=== PATIENT | female | born 1945 | race Hispanic/Latino ===

== ENCOUNTER 2017-03-15 11:57 | Inpatient (IN) | payer BC, MEDICARE ==
[2017-03-15 12:14] VITALS: BMI 25.0
--- NOTE | 2017-03-15 12:40 | ED PDOC ---
Arrival/HPI - General Historian: Patient - History of Present Illness Time/Duration: 1 week Symptom Onset: Gradual Symptom Course: Worsening - General Time Seen by Provider: 03/15/17 12:16 - History of Present Illness Narrative History of Present Illness (Text): 71 F with pmh of Hypertension and smoking for past 58 years presents with cough , dyspnea on exertion, and weakness. Pt states that she has productive cough which has gotten progressively worse. Today she started to feel very weak and becoming short of breath walking from her bedroom to her bathroom so she came to the emergency department. Pt denies any fevers but complaining of chills. She also complaining of palpitations but denies any chest pain. No other complaints. Denies any headache, dizziness, n/v/d, chest pain, abd pain, urinary or bm changes. PMD: Dr Frost ([facility]) Past Medical History - Provider Review Nursing Documentation Reviewed: Yes - Cardiac Hx Hypertension: Yes - Musculoskeletal/Rheumatological Hx Falls: No - Psychiatric Hx Depression: No Hx Emotional Abuse: No Hx Physical Abuse: No Hx Substance Use: No - Surgical History Hx Hysterectomy: Yes (partial) Hx Orthopedic Surgery: Yes (lower back sx 5 yrs ago, laminectomy left lower back ) - Anesthesia Hx Anesthesia: Yes Hx Anesthesia Reactions: No Hx Malignant Hyperthermia: No - Suicidal Assessment Feels Threatened In Home Enviroment: No Family/Social History - Physician Review Nursing Documentation Reviewed: Yes Family/Social History: Diabetes (mother) Smoking Status: Heavy Smoker > 10 Cigarettes Daily Hx Alcohol Use: No Hx Substance Use: No Hx Substance Use Treatment: No Allergies/Home Meds Allergies/Adverse Reactions: Allergies ceftriaxone Allergy (Verified 03/15/17 12:38) RASH Iodinated Contrast Media - Oral and Allergy (Verified 03/15/17 12:38) RASH Home Medications: Home Meds Medication Instructions Recorded Confirmed DULoxetine [Cymbalta] 0 mg PO DAILY 11/25/13 11/25/13 Lisinopril 0 mg PO DAILY 11/25/13 11/25/13 Tramadol Hydrochloride [Tramadol] 0 mg PO TID 11/25/13 11/25/13 Codeine Phos/Phenyleph HCl/P 5 ml PO Q12 PRN 11/28/13 11/28/13 [Phenergan Vc W/Codeine 120 ml] Doxycycline 100 mg PO BID 11/28/13 11/28/13 Review of Systems - Physician Review All systems were reviewed & negative as marked: Yes - Review of Systems Constitutional: Fatigue. absent: Fevers Respiratory: SOB, Cough, Sputum Cardiovascular: Palpitations. absent: Chest Pain, Edema, Calf Pain Physical Exam Temperature: Afebrile Blood Pressure: Normal Pulse: Regular Respiratory Rate: Normal Appearance: Positive for: Well-Appearing, Non-Toxic, Comfortable Pain Distress: None Mental Status: Positive for: Alert and Oriented X 3 - Systems Exam Head: Present: Atraumatic, Normocephalic Pupils: Present: PERRL Extroacular Muscles: Present: EOMI Conjunctiva: Present: Normal Mouth: Present: Moist Mucous Membranes Neck: Present: Normal Range of Motion Respiratory/Chest: Present: Clear to Auscultation, Good Air Exchange, Decreased Breath Sounds (LUQ). No: Respiratory Distress, Accessory Muscle Use, Wheezes, Rales, Rhonchi Cardiovascular: Present: Regular Rate and Rhythm, Normal S1, S2, Tachycardic. No: Murmurs Abdomen: Present: Normal Bowel Sounds. No: Tenderness, Distention, Peritoneal Signs Upper Extremity: Present: Normal Inspection. No: Cyanosis, Edema Lower Extremity: Present: Normal Inspection. No: Edema Neurological: Present: GCS=15, CN II-XII Intact, Speech Normal Skin: Present: Warm, Dry, Normal Color. No: Rashes Psychiatric: Present: Alert, Oriented x 3, Normal Insight, Normal Concentration Vital Signs Temp Pulse Resp BP Pulse Ox 03/15/17 17:02 107 H 18 113/79 96 03/15/17 15:37 111 H 18 111/75 97 03/15/17 14:41 92 H 18 114/79 100 03/15/17 12:39 17 97 03/15/17 12:16 98.1 F 96 H 17 112/80 100 03/15/17 12:13 98 F 100 H 18 112/80 100 Medical Decision Making ED Course and Treatment: 03/15/17 18:58 Patient seen and examined with resident Came up with treatment and disposition plan with resident (Ruben Drew) Impression: 71 F with pmh of Hypertension and smoking for past 58 years presents with cough, dyspnea on exertion, and weakness. Differential Diagnosis included but are not limited to: Pneumina / Bronchitis / COPD exac / CHF Plan: - CBC, CMP, Cardiac Iso, BNP - CXR - Urinalysis - Duoneb - Reassess and disposition Prior Visits: Notes and results from previous visits were reviewed. On11/25/13 patient came in complaining of similar symptoms. Progress Notes: 03/15/17 12:49 Pt hemodynamically stable. Resting in bed comfortably. 03/15/17 13:05 EKG: Ordered, reviewed, and independently interpreted the EKG. Rate : 100 BPM Rhythm : NSR Interpretation : possible L atrial enlargement, Low voltage QRS. Comparison : No previous EKG for comparison. 03/15/17 13:13 CXR- Shows no active disease. 03/15/17 15:28 BUN 57 and Cr of 1.7 1 L IVF bolus started 03/15/17 16:[address] Viveros covering for Dr Frost which will admit the patient under her service. ([facility]) - Lab Interpretations Lab Results: 03/15/17 13:00 03/15/17 13:00 Lab Results 03/15/17 13:00: Sodium 138, Potassium 4.9, Chloride 103, Carbon Dioxide 21, Anion Gap 19, BUN 53 H, Creatinine 1.7 H, Est GFR ( Amer) 36, Est GFR ( Non-Af Amer) 30, Random Glucose 89, Calcium 10.2, Total Bilirubin 0.9, AST 26, ALT 30, Alkaline Phosphatase 92, Lactate Dehydrogenase 521, Total Creatine Kinase 151, Troponin I < 0.01, NT-Pro-B Natriuret Pep 116, Total Protein 8.3, Albumin 4.7, Globulin 3.6, Albumin/Globulin Ratio 1.3 03/15/17 13:00: WBC 7.7, RBC 4.77, Hgb 15.4, Hct 43.7, MCV 91.6, MCH 32.3, MCHC 35.2, RDW 13.0, Plt Count 404, MPV 9.5, Gran % 66.7, Lymph % (Auto) 25.4, Wilson % (Auto) 5.8, Eos % (Auto) 1.6, Baso % (Auto) 0.5, Gran # 5.14, Lymph # 2.0, Wilson # 0.5, Eos # 0.1, Baso # 0.04 - RAD Interpretation Radiology Orders: 03/15/17 12:41 CHEST PORTABLE [RAD] Routine - Medication Orders Current Medication Orders: Discontinued Medications Albuterol/Ipratropium (Duoneb 3 Mg/0.5 Mg (3 Ml) Ud) 3 ml IH Q15M SONY Stop: 03/15/17 13:31 Last Admin: 03/15/17 13:30 Dose: 3 ml Sodium Chloride (Sodium Chloride 0.9%) 1,000 mls @ 999 mls/hr IV .Q1H1M STA Stop: 03/15/17 16:23 Last Admin: 03/15/17 16:52 Dose: 999 mls/hr Disposition/Present on Arrival - Present on Arrival Any Indicators Present on Arrival: No History of DVT/PE: No History of Uncontrolled Diabetes: No Urinary Catheter: No History of Decub. Ulcer: No History Surgical Site Infection Following: None - Disposition Have Diagnosis and Disposition been Completed?: Yes Disposition Time: 16:04 Patient Plan: Admission - Disposition Diagnosis: Dyspnea on exertion, Dehydration Disposition: HOSPITALIZED Condition: FAIR
--- NOTE | 2017-03-15 13:10 | RAD ---
HISTORY: sob COMPARISON: 10/11/2014 FINDINGS: LUNGS: No active pulmonary disease. PLEURA: No significant pleural effusion identified, no pneumothorax apparent. CARDIOVASCULAR: Normal. OSSEOUS STRUCTURES: No significant abnormalities. VISUALIZED UPPER ABDOMEN: Normal. OTHER FINDINGS: None. IMPRESSION: No active disease.
[2017-03-15 13:20] LABS: ADD MANUAL DIFF? NO
[2017-03-15] MEDS: Albuterol-Ipratrop 3 mg / 0.5 (3 ml) UD IH SCH ×2 (13:20→13:30)
[2017-03-15 13:33] LABS: ALB/GLOB RATIO 1.3 (1.1-1.8); ALKALINE PHOSPHATASE 92 U/L (38-133); ALT/SGPT 30 U/L (7-56); AST/SGOT 26 U/L (15-39); BILIRUBIN,TOTAL 0.9 mg/dL (0.2-1.3); BLOOD UREA NITROGEN 53 mg/dL (7-21); CALCIUM 10.2 mg/dL (8.4-10.5); CARBON DIOXIDE 21 mmol/L (21-33); CHLORIDE 103 mmol/L (98-107); GFR AFRICAN-AMERICAN 36; GLUCOSE,RANDOM 89 mg/dL (70-110); POTASSIUM 4.9 mmol/L (3.6-5.0); SODIUM 138 mmol/L (132-148); TOTAL PROTEIN 8.3 g/dL (5.8-8.3)
[2017-03-15 13:34] LABS: BASO # 0.04 K/mm3 (0.0-2.0); BASO % 0.5 % (0.0-3.0); EOS # 0.1 (0.0-0.7); EOS % 1.6 % (1.5-5.0); GRAN # 5.14 (1.4-6.5); GRAN % 66.7 % (50.0-68.0); HEMATOCRIT 43.7 % (36.0-48.0); LYMPH % 25.4 % (22.0-35.0); MEAN CELL VOLUME 91.6 fL (80.0-105.0); MEAN CORPUSCULAR HEMOGLOBIN 32.3 pg (25.0-35.0); MEAN CORPUSCULAR HGB CONC 35.2 g/dl (31.0-37.0); MEAN PLATELET VOLUME 9.5 fl (7.0-11.0); MONO # 0.5 (0.1-0.6); MONO % 5.8 % (1.0-6.0); PLATELET COUNT 404 10^3/uL (120.0-450.0); WHITE BLOOD COUNT 7.7 10^3/ul (4.5-11.0)
[2017-03-15 13:46] LABS: TROPONIN I < 0.01 ng/mL
[2017-03-15] MEDS ORDERED: Sodium Chloride 0.9% 1,000 ML IV STA (15:23)
[2017-03-15] MEDS ORDERED: Promethazine DM 6.25 mg-15 mg/5 ml Syrup PO PRN (19:23)
[2017-03-15] MEDS: Levalbuterol 1.25 MG/3 ML Inhal Soln UD IH SCH (19:52)
[2017-03-15] MEDS ORDERED: Pneumococcal 23-Valent Vaccine IM ONE (20:59)
[2017-03-15] MEDS: MethylPREDNISolone 40 mg Vial IV SCH (22:22)
[2017-03-15] MEDS: Dextrose 5%/0.45% NS 1,000 ML IV SCH (22:22)
--- NOTE | 2017-03-15 23:57 | HP ---
HISTORY OF PRESENT ILLNESS: The patient is a 71-year-old patient of Dr. Frost, I am covering for him over the weekend, who came to Emergency Room because of productive cough and generalized weaknes s and getting shortness of breath on minimal walking. It has been going on for almost a week, but got progressively worse for the last 2 to 3 days. She is complaining of generalized weakness and it has become hard for her to walk within the house, so she came to Emergency Room for further evaluation. She does not have any fever or chills. She does not have a history of hemoptysis. Does feel hot an d cold at times, complained of occasional cough and palpitations associated with minimal exertion. N o history of diarrhea. PAST MEDICAL HISTORY: Significant for: 1. Hypertension. 2. History of severe peripheral vascular disease. 3. Spinal stenosis. PAST SURGICAL HISTORY: Significant for hysterectomy and low back surgery. ALLERGIES: SHE IS ALLERGIC TO CONTRAST MEDIA AND ROCEPHIN. MEDICATIONS AT HOME: She is on tramadol, lisinopril, doxycycline 100 mg twice a day, Cymbalta 30 mg daily and cough medicine. SOCIAL HISTORY: She used to be a very heavy smoker and she still smokes and socially drinks. REVIEW OF SYSTEMS: Significant for generalized weakness, cough and congestion. PHYSICAL EXAMINATION: GENERAL: She is awake, alert and communicative. VITAL SIGNS: She is afebrile, pulse 96, respirations 17 and blood pressure 112/80. LUNGS: Bilateral expiratory rhonchi. HEART: S1, S2 audible. ABDOMEN: Soft, nontender, no rebound and no guarding. NEUROLOGIC: The patient is awake, alert and communicative. EXTREMITIES: Bilateral legs -- no edema. LABORATORY DATA: X-ray chest shows no active disease. Her WBC is 7.7, hemoglobin 15.4, hematocrit 4 3 and platelets . Chemistry: Sodium 138, potassium 4.9, chloride 103, CO2 of 21, BUN 53, creat inine 0.7 and blood sugar of 89. BNP is 116. ASSESSMENT AND PLAN: 1. Chronic obstructive pulmonary disease exacerbation, rule out underlying pneumonia. 2. Mild renal insufficiency. 3. Chronic degenerative disk disease. 4. Hypertension. PLAN: The patient will be admitted on telemetry. Will start her on IV fluids and start IV steroids. I will get CT scan of the chest to rule out underlying pneumonia. Start her empirically on antibio tics and start her on DVT prophylaxis and GI prophylaxis. Michelle Viveros MD cc: [phone] TT: 03/15/2017 23:56:37 sn
[2017-03-16] MEDS: Levalbuterol 1.25 MG/3 ML Inhal Soln UD IH SCH ×4 (01:10→19:47)
[2017-03-16] MEDS: Oxycodone/Acetaminophen 5/325 mg Tab PO PRN ×2 (02:37→21:25)
[2017-03-16 03:01] LABS: PH,URINE 5.5 (4.7-8.0); URINE BILIRUBIN MODERATE (NEGATIVE); URINE BLOOD NEGATIVE (NEGATIVE); URINE GLUCOSE (UA) NEGATIVE (NEGATIVE); URINE KETONE NEGATIVE (NEGATIVE); URINE LEUKOCYTE ESTERASE TRACE Leu/uL (NEGATIVE); URINE PROTEIN NEGATIVE mg/dL (<30 mg/dL); URINE UROBILINOGEN 0.2 E.U./dL (<1 E.U./dL)
[2017-03-16 03:03] LABS: URINE APPEARANCE CLEAR (CLEAR); URINE COLOR YELLOW (YELLOW)
[2017-03-16 03:08] LABS: URINE BACTERIA MOD (NEG)
[2017-03-16] MEDS: Pantoprazole 40 mg EC Tab PO SCH (05:57)
[2017-03-16] MEDS: MethylPREDNISolone 40 mg Vial IV SCH ×3 (05:57→21:25)
--- NOTE | 2017-03-16 09:39 | CARD ---
APPROVED REPORT EKG Measurement Heart [id number] MI [id number] <Conclusion> Normal sinus rhythm PRWP NSSTW changes LAD Q in 3 No change c/w ECG 11/25/13 except slower rate.
[2017-03-16] MEDS: levoFLOXacin 500 mg in D5W 500 MG/100 ML BAG IVPB SCH (09:43)
[2017-03-16 11:12] LABS: ALB/GLOB RATIO 1.2 (1.1-1.8); BILIRUBIN,TOTAL 0.6 mg/dL (0.2-1.3); CALCIUM 9.5 mg/dL (8.4-10.5); POTASSIUM 4.4 mmol/L (3.6-5.0); TOTAL PROTEIN 7.4 g/dL (5.8-8.3)
--- NOTE | 2017-03-16 12:22 | PN ---
DATE: 03/16/2017 SUBJECTIVE: The patient is a 71-year-old, seen and examined, lying in bed, seems to be doing a lot b ellen, anxious to go home for Mother's day. She states her cough is better, but shortness of breath has improved significantly. PHYSICAL EXAMINATION: VITAL SIGNS: She is afebrile, pulse 90, respirations 20, blood pressure 122/74. LUNGS: Bilateral few expiratory rhonchi. HEART: S1, S2 audible. ABDOMEN: Soft, nontender, no rebound, no guarding. NEUROLOGIC: She is awake and alert, communicative, ambulatory. LABORATORY EXAM: Chemistry: Sodium 133, potassium 4.4, chloride 100, CO2 20, BUN 51, creatinine 1.4 , blood sugar 178. Her cultures are pending. ASSESSMENT: 1. Chronic obstructive pulmonary disease exacerbation. 2. Hypertension. 3. Asthmatic bronchitis. 4. Active smoker. 5. Chronic degenerative disk disease. 6. Mild renal insufficiency, improving. PLAN: We will continue patient on IV fluid another 24 hours. Continue antibiotic. Continue nebuliz er treatment. Continue her on IV steroids and she will be reevaluated in a.m. If she is stable, catalina ht be discharged in morning on Saturday. Michelle Viveros MD cc: [phone] TT: 03/16/2017 12:21:38 Confirmation # [id number] Dictation # [id number] brooke
[2017-03-16] MEDS: Dextrose 5%/0.45% NS 1,000 ML IV SCH ×2 (14:00→23:17)
[2017-03-17] MEDS: Levalbuterol 1.25 MG/3 ML Inhal Soln UD IH SCH ×3 (01:11→13:54)
[2017-03-17] MEDS: MethylPREDNISolone 40 mg Vial IV SCH (05:54)
[2017-03-17] MEDS: Pantoprazole 40 mg EC Tab PO SCH (05:54)
[2017-03-17 06:03] VITALS: O2SAT 96
[2017-03-17 08:00] LABS: ALB/GLOB RATIO 1.2 (1.1-1.8); BILIRUBIN,TOTAL 0.5 mg/dL (0.2-1.3); CALCIUM 9.6 mg/dL (8.4-10.5); POTASSIUM 4.8 mmol/L (3.6-5.0); TOTAL PROTEIN 7.3 g/dL (5.8-8.3)
--- NOTE | 2017-03-17 09:37 | CARD ---
APPROVED REPORT EXAM: Two-dimensional and M-mode echocardiogram with Doppler and color Doppler. Other Information Quality : FairRhythm : INDICATION Dizziness 2D DIMENSIONS IVSd0.9 (0.7-1.1cm)LVDd4.0 (3.9-5.9cm) LVOT Diameter2.0 (1.8-2.4cm)PWd1.2 (0.7-1.1cm) LVDs2.9 (2.5-4.0cm)FS (%) 26.9 % LVEF (%)53.0 (>50%) M-Mode DIMENSIONS Left Atrium (MM)3.30 (2.5-4.0cm)Aortic Root3.40 (2.2-3.7cm) Aortic Cusp Exc.1.70 (1.5-2.0cm) Aortic Valve AoV Peak Etnihvwj040.0cm/sAoV VTI25.9cmLVOT Peak Feqinddk12.5cm/s LVOT VTI16.40cmAVA (VMAX)1.26oa7TDF (VTI)1.99cm2 Mitral Valve MV E Wnvdgneq47.5cm/sMV A Ydeeqgim38.0cm/sE/A ratio0.5 TDI Lateral E' Peak V8.77cm/sMedial E' Peak V4.00cm/sE/Lateral E'4.5 E/Medial E'9.9 Tricuspid Valve TR Peak Qeqzdsxf226ge/sRAP STHUKWCS67ooWxAQ Peak Gr.17mmHg [id number] LEFT VENTRICLE The left ventricle is normal size. There is normal left ventricular wall thickness. The left ventricular function is normal. The left ventricular ejection fraction is within the normal range. There is normal LV segmental wall motion. RIGHT VENTRICLE The right ventricle is normal size. ATRIA The left atrium size is normal. The right atrium size is normal. The interatrial septum is intact with no evidence for an atrial septal defect. AORTIC VALVE The aortic valve is moderately calcified. MITRAL VALVE The mitral valve is mildly thickened but opens well. Mitral regurgitation is trace. TRICUSPID VALVE The tricuspid valve is normal in structure. There is trace tricuspid regurgitation. PULMONIC VALVE The pulmonic valve is not well visualized. GREAT VESSELS The aortic root is normal in size. PERICARDIAL EFFUSION There is no pericardial effusion. <Conclusion> The left ventricle is normal size. There is normal left ventricular wall thickness. The left ventricular function is normal. The aortic valve is moderately calcified. Aortic sclerosis. Mitral regurgitation is trace. There is trace tricuspid regurgitation.
[2017-03-17] MEDS: levoFLOXacin 500 mg in D5W 500 MG/100 ML BAG IVPB SCH (09:39)
[2017-03-17 11:51] VITALS: BP 117/81; PULSE 80; RESP 20; TEMP 98.2
--- NOTE | 2017-03-17 20:25 | DS ---
DISCHARGE DIAGNOSES: 1. Chronic kidney disease. 2. Chronic obstructive pulmonary disease exacerbation. 3. Hypertension. 4. Spinal stenosis. 5. Anemia related to chronic kidney disease. HOSPITAL COURSE: The patient was admitted with shortness of breath, productive cough. Chest x-ray was negative for infiltration. She was treated with IV antibiotics and bronchodilators. Shortness of breath improved. Kidney functions were stable during hospitalization. She has history of spinal stenosis. There were no issues. Hypertension, blood pressure well controlled during the hospitalization. PHYSICAL EXAMINATION: GENERAL: On discharge, she is awake, alert, oriented. VITAL SIGNS: Stable. Temperature 98.7, heart rate 90 per minute, blood pressure 130/80. Temperature 98.6, respiratory rate 16 per minute. HEENT: Normal. NECK: No lymphadenopathy. CHEST: Air entry present, equal bilateral. No added sound. CARDIOVASCULAR: S1, S2 normal. No murmur, no gallop. ABDOMEN: Soft, nontender, no hepatosplenomegaly. EXTREMITIES: No edema. CENTRAL NERVOUS SYSTEM: Alert, oriented x 3. No focal sensorimotor deficit. SKIN: No petechia, no rash. LABORATORY DATA: On discharge, white count 7.7, hematocrit 43.7, platelet count 404. Sodium 135, potassium 4.8, calcium 9.6, AST 22, ALT 35, alkaline phosphatase 71. CONDITION ON DISCHARGE: Stable. DISPOSITION: Discharge home. DISCHARGE MEDICATIONS: Tylenol 650 when needed for back pain, aspirin 81 mg daily, Cymbalta 30 mg daily, Xopenex inhalation q. 6 hours p.r.n., Percocet p.r.n., Protonix 40 mg daily, Phenergan p.r.n. FOLLOWUP: Dr. Frost in 1 week. DISPOSITION: Discharged home. Discussed with the staff nurse. Discussed with the patient. Time spent in preparing discharge and coordinating care, 45 minutes. Dariela Marinelli MD cc: [id number] TT: 03/17/2017 20:24:47 hussein JAMES
== END 2017-03-17 15:04 | disposition home or self-care (01) | DRG 192 ==
LOC: ED 11:57 → ERH 16:05 → 2RSO 19:19
PROVIDERS: ADMIT Internal Medicine; ATTEND Internal Medicine
PROC: 3E0F7GC Introduction of Other Therapeutic Substance into Respiratory Tract, Via Natural or Artificial Opening (ICD-10-PCS; principal; 2017-03-15)
DX: J44.1 Chronic obstructive pulmonary disease with (acute) exacerbation (principal); D63.1 Anemia in chronic kidney disease; E86.0 Dehydration; I12.9 Hypertensive chronic kidney disease with stage 1 through stage 4 chronic kidney disease, or unspecified chronic kidney disease; N18.9 Chronic kidney disease, unspecified; I73.9 Peripheral vascular disease, unspecified; M48.00 Spinal stenosis, site unspecified; F17.210 Nicotine dependence, cigarettes, uncomplicated; Z90.710 Acquired absence of both cervix and uterus; Z91.041 Radiographic dye allergy status